=== PATIENT | female | born 2005 | race Caucasian/White ===

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

== ENCOUNTER → 2024-03-16 | Outpatient (CLI) | payer OTHER ==
[~2024-03-16] MED LIST changes: +MEDROL DOSEPAK4 MG PO
== END | disposition home or self-care (01) ==
LOC: RAD 17:00
PROVIDERS: ATTEND Nurse Practitioner Family
DX: M79.645 Pain in left finger(s) (principal)

== ENCOUNTER 2024-04-27 15:48 | Emergency (ER) | payer OTHER ==
[~2024-04-27] VITALS: Ht 157.4 cm; Wt 145.1 kg
[2024-04-27] MEDS ORDERED: Ondansetron Hydrochloride 4 MG/2 ML VIAL IV ONE (16:30)
[2024-04-27] MEDS ORDERED: SODIUM CHLORIDE 0.9% 1,000 ML IV ONE (16:30)
[2024-04-27 16:43] LABS: BILIRUBIN Negative (Negative); BLOOD Negative (Negative); CLARITY Clear (Clear); COLOR Yellow (Yellow); GLUCOSE Negative (Negative); KETONE Negative (Negative); LEUKO ESTERASE Trace (Negative); NITRITE Negative (Negative); PH 5.5 (4.5-8.0); UROBILINOGEN 0.2 E.U./dl (0.0-1.0)
[2024-04-27 16:43] LABS: BASO # 0.1 10*3/uL (0.0-0.1); BASO % 0.6 % (0.0-1.0); EOS # 0.1 10*3/uL (0.0-0.4); EOS % 1.2 % (1.0-4.0); HEMATOCRIT 40.1 % (37.0-47.0); LYMPH # 2.9 10*3/uL (1.3-4.4); LYMPH % 26.5 % (27.0-41.0); MEAN CELL VOLUME 78.3 fl (81.0-99.0); MEAN CORPUSCULAR HGB CONC 31.9 g/dl (33.0-37.0); MEAN PLATELET VOLUME 9.9 fl (9.6-12.3); MONO # 0.7 10*3/uL (0.1-1.0); MONO % 6.3 % (3.0-9.0); NEUT # 7.1 10*3/uL (2.3-7.9); NEUT % 65.1 % (47.0-73.0); PLATELET COUNT AUTOMATED 305 10*3/uL (130-400); RED BLOOD COUNT 5.12 10*6/uL (4.10-5.10); RED CELL DISTRI WIDTH 13.8 % (0-14.5); WHITE BLOOD COUNT 10.9 10*3/uL (4.8-10.8)
[2024-04-27 17:08] LABS: ALKALINE PHOSPHATASE 64 U/L (46-116); BUN 12 mg/dl (9-23); CHLORIDE 102 mmol/L (98-107); LIPASE 40 U/L (12-53); POTASSIUM 4.2 mmol/L (3.4-5.1); SGPT/ALT 34 U/L (5-49); TOTAL PROTEIN 7.6 gm/dL (6.0-8.0)
[2024-04-27 17:13] LABS: BACTERIA 1+
[2024-04-27] MEDS ORDERED: Ceftriaxone Sodium 1 GM/10 ML SYR IV ONE (19:25)
[2024-04-27] MEDS ORDERED: Acetaminophen/Oxycodone 5 MG/325 MG TABLET PO ONE (19:35)
[2024-04-27] MEDS ORDERED: HYDROCODONE-AC1 EAC1 PO (19:37)
[2024-04-27] MEDS ORDERED: Ondansetron4 MG PO (19:37)
[2024-04-27] MEDS ORDERED: CEPHALEXIN500 M1 PO (19:37)
== END 2024-04-27 20:14 | disposition home or self-care (01) ==
LOC: ED 15:48
PROVIDERS: Nurse Practitioner Family
DX: N39.0 Urinary tract infection, site not specified (principal); L03.316 Cellulitis of umbilicus; N83.201 Unspecified ovarian cyst, right side; F90.9 Attention-deficit hyperactivity disorder, unspecified type; R11.2 Nausea with vomiting, unspecified; Z88.8 Allergy status to other drugs, medicaments and biological substances; Z98.890 Other specified postprocedural states

== ENCOUNTER → 2024-04-28 | Outpatient (CLI) | payer OTHER ==
[~2024-04-28] MED LIST changes: +CEPHALEXIN500 M1 PO; +HYDROCODONE-AC1 EAC1 PO; +Ondansetron4 MG PO
== END | disposition home or self-care (01) ==
LOC: US 16:48
PROVIDERS: ATTEND Nurse Practitioner Family
DX: N83.201 Unspecified ovarian cyst, right side (principal)

== ENCOUNTER 2024-07-05 16:24 | Inpatient (IN) | payer OTHER ==
[~2024-07-05] VITALS: Ht 157.4 cm; Wt 153.5 kg
[2024-07-05 16:46] VITALS: BP 100/61
[2024-07-05] MEDS ORDERED: SODIUM CHLORIDE 0.9% 500 ML IV ONE ×2 (17:00→20:00)
[2024-07-05] MEDS ORDERED: Ondansetron Hydrochloride 4 MG/2 ML VIAL IV ONE (17:00)
[2024-07-05 17:06] LABS: BASO # 0.1 10*3/uL (0.0-0.1); BASO % 0.2 % (0.0-1.0); HEMATOCRIT 37.9 % (37.0-47.0); MEAN CELL VOLUME 77.3 fl (81.0-99.0); MEAN CORPUSCULAR HGB 24.7 pg (27.0-31.0); MEAN CORPUSCULAR HGB CONC 31.9 g/dl (33.0-37.0); MEAN PLATELET VOLUME 10.9 fl (9.6-12.3); MONO # 1.4 10*3/uL (0.1-1.0); MONO % 6.8 % (3.0-9.0); NEUT % 86.1 % (47.0-73.0); PLATELET COUNT AUTOMATED 227 10*3/uL (130-400); RED CELL DISTRI WIDTH 14.9 % (0-14.5)
[2024-07-05 17:31] LABS: POTASSIUM 3.8 mmol/L (3.4-5.1); TOTAL PROTEIN 7.3 gm/dL (6.0-8.0)
[2024-07-05 19:21] LABS: FREE T4 1.94 ng/dl (0.89-1.76)
[2024-07-05 19:31] LABS: BILIRUBIN 1+ (Negative); BLOOD 3+ (Negative); CLARITY Turbid (Clear); COLOR Orange (Yellow); GLUCOSE Negative (Negative); KETONE Negative (Negative); LEUKO ESTERASE 3+ (Negative); NITRITE Negative (Negative); PH 5.5 (4.5-8.0); SPECIFIC GRAVITY 1.015 (1.001-1.030); UROBILINOGEN 0.2 E.U./dl (0.0-1.0)
[2024-07-05] MEDS ORDERED: MAGNESIUM OXIDE 400 MG TAB PO ONE (19:45)
[2024-07-05 19:59] LABS: BACTERIA 2+; MUCOUS 1+; RBC 31-40 rbc/hpf (0-2); WBC TNTC wbc/hpf (0-5)
[2024-07-05] MEDS ORDERED: Ceftriaxone Sodium 1 GM/10 ML SYR IV ONE (20:05)
[2024-07-05] MEDS ORDERED: MORPHINE Sulfate 2 MG/ML SYR IV PRN (20:45)
[2024-07-05] MEDS ORDERED: Acetaminophen/Hydrocodone 5 MG/325 MG TABLET PO PRN (20:45)
[2024-07-05] MEDS ORDERED: SODIUM CHLORIDE 0.9% 1,000 ML IV SCH (20:45)
[2024-07-05] MEDS ORDERED: Ondansetron Hydrochloride 4 MG/2 ML VIAL IV PRN (20:45)
[2024-07-05] MEDS ORDERED: MORPHINE Sulfate 2 MG/ML SYR IV ONE (21:05)
[2024-07-05] MEDS ORDERED: Ceftriaxone Sodium 1 GM/10 ML SYR IV SCH (21:30)
[2024-07-05] MEDS ORDERED: Enoxaparin Sodium 120 MG/0.8 ML SYR SC SCH ×2 (22:00)
[2024-07-05 22:28] VITALS: BP 123/49
[2024-07-06 05:26] VITALS: BP 111/63
[2024-07-06 06:33] LABS: HEMATOCRIT 35.5 % (37.0-47.0); MEAN CELL VOLUME 78.7 fl (81.0-99.0); MEAN CORPUSCULAR HGB 24.6 pg (27.0-31.0); MEAN CORPUSCULAR HGB CONC 31.3 g/dl (33.0-37.0); MEAN PLATELET VOLUME 11.6 fl (9.6-12.3); PLATELET COUNT AUTOMATED 226 10*3/uL (130-400); RED BLOOD COUNT 4.51 10*6/uL (4.10-5.10); RED CELL DISTRI WIDTH 15.2 % (0-14.5); WHITE BLOOD COUNT 20.3 10*3/uL (4.8-10.8)
[2024-07-06 06:36] LABS: MANUAL DIFF REFLEX YES
[2024-07-06] MEDS ORDERED: Technetium Tc 99M Pentetate 1 KIT KIT IV SCH (07:20)
[2024-07-06] MEDS ORDERED: Technetium Tc 99M MacroAg Albu 1 KIT KIT IV SCH (07:20)
[2024-07-06 07:28] LABS: BASOPHILS 1 % (0-1); BURR CELLS FEW; MICROCYTOSIS SLIGHT; OVALOCYTES FEW; PLATELET SUFFICIENCY NORMAL (NORMAL); POLYCHROMASIA SLIGHT; TOTAL CELLS COUNTED 100 #CELLS
[2024-07-06] MEDS ORDERED: SODIUM CHLORIDE 0.9% 1,000 ML IV SCH (08:00)
[2024-07-06 08:06] VITALS: BP 104/58
[2024-07-06] MEDS ORDERED: HEPARIN SODIUM 250 ML IV SCH (08:20)
[2024-07-06] MEDS ORDERED: ACETAMINOPHEN 325 MG TAB PO ONE (08:20)
[2024-07-06] MEDS ORDERED: SODIUM BICARBONATE 150 MEQ in DEXTROSE 5% 1,000 ML IV SCH ×2 (09:25→19:00)
[2024-07-06] MEDS ORDERED: Ceftriaxone Sodium 1 GM in SYRINGE INFUSION 10 ML IV SCH (10:00)
[2024-07-06 12:15] VITALS: BP 107/63
[2024-07-06 14:30] VITALS: BP 109/71
[2024-07-06] MEDS ORDERED: HYDROXYZINE HCL25 MG PO (14:36)
[2024-07-06] MEDS ORDERED: SERTRALINE HYDR50 MG PO (14:37)
[2024-07-06] MEDS ORDERED: TRULICITY3 MG/0.5 M SQ (14:37)
[2024-07-06 18:35] VITALS: BP 115/61
[2024-07-06] MEDS ORDERED: ACETAMINOPHEN 325 MG TAB PO PRN (18:35)
[2024-07-06 20:00] VITALS: BP 118/74
[2024-07-06] MEDS ORDERED: Ceftriaxone Sodium 2 GM in SYRINGE INFUSION 20 ML IV SCH (21:00)
[2024-07-06] MEDS ORDERED: FERROUS SULFATE 325 MG TAB PO SCH (22:00)
[2024-07-07] VITALS: BP 129/75
[2024-07-07] MEDS ORDERED: OXYCODONE HCL (IR) 5 MG TAB PO SCH (06:00)
[2024-07-07] MEDS ORDERED: Levothyroxine Sodium 75 MCG TAB PO SCH (06:00)
[2024-07-07 06:06] LABS: MEAN CELL VOLUME 76.4 fl (81.0-99.0); MEAN CORPUSCULAR HGB 24.9 pg (27.0-31.0); MEAN CORPUSCULAR HGB CONC 32.6 g/dl (33.0-37.0); MEAN PLATELET VOLUME 11.4 fl (9.6-12.3); PLATELET COUNT AUTOMATED 271 10*3/uL (130-400); RED BLOOD COUNT 4.58 10*6/uL (4.10-5.10); RED CELL DISTRI WIDTH 15.4 % (0-14.5); WHITE BLOOD COUNT 21.1 10*3/uL (4.8-10.8)
[2024-07-07 06:08] LABS: POTASSIUM 3.5 mmol/L (3.4-5.1)
[2024-07-07 06:14] LABS: MANUAL DIFF REFLEX YES
[2024-07-07 06:56] LABS: MICROCYTOSIS SLIGHT; POLYCHROMASIA SLIGHT; TOTAL CELLS COUNTED 100 #CELLS
[2024-07-07 06:57] LABS: BURR CELLS FEW; OVALOCYTES FEW; PLATELET SUFFICIENCY NORMAL (NORMAL); SCHISTOCYTES FEW; TOXIC GRANULATION SLIGHT
[2024-07-07 08:00] VITALS: BP 120/71
[2024-07-07] MEDS ORDERED: Sertraline Hydrochloride 50 MG TAB PO SCH (10:00)
[2024-07-07] MEDS ORDERED: amLODIPine besylate 5 MG TAB PO SCH (10:00)
[2024-07-07 12:00] VITALS: BP 132/71
[2024-07-07] MEDS ORDERED: Meropenem 50 ML IV SCH (12:00)
[2024-07-07 12:04] LABS: BILIRUBIN Negative (Negative); BLOOD 2+ (Negative); CLARITY Clear (Clear); COLOR Yellow (Yellow); GLUCOSE Negative (Negative); KETONE Negative (Negative); LEUKO ESTERASE Trace (Negative); NITRITE Negative (Negative); PH 5.5 (4.5-8.0); UROBILINOGEN 0.2 E.U./dl (0.0-1.0)
[2024-07-07 12:14] LABS: URINE CREATININE RANDOM 81.76 mg/dL
[2024-07-07 12:17] LABS: WBC 16-20 wbc/hpf (0-5)
[2024-07-07] MEDS ORDERED: SODIUM BICARBONATE 75 MEQ in SODIUM CHLORIDE 0.45% 1,000 ML IV SCH (13:00)
[2024-07-07 16:00] VITALS: BP 114/70
[2024-07-07 20:00] VITALS: BP 119/69
[2024-07-08] VITALS: BP 136/83
[2024-07-08 05:52] LABS: POTASSIUM 3.2 mmol/L (3.4-5.1); TOTAL PROTEIN 6.8 gm/dL (6.0-8.0)
[2024-07-08 06:26] LABS: HEMATOCRIT 35.8 % (37.0-47.0); MEAN CELL VOLUME 74.9 fl (81.0-99.0); MEAN CORPUSCULAR HGB 24.7 pg (27.0-31.0); MEAN PLATELET VOLUME 10.6 fl (9.6-12.3); PLATELET COUNT AUTOMATED 293 10*3/uL (130-400); RED BLOOD COUNT 4.78 10*6/uL (4.10-5.10); RED CELL DISTRI WIDTH 15.4 % (0-14.5); WHITE BLOOD COUNT 15.4 10*3/uL (4.8-10.8)
[2024-07-08 06:30] LABS: MANUAL DIFF REFLEX YES
[2024-07-08] MEDS ORDERED: POTASSIUM CHLORIDE 20 MEQ TAB PO ONE (06:55)
[2024-07-08 08:00] VITALS: BP 133/74
[2024-07-08 08:28] LABS: PLATELET SUFFICIENCY NORMAL (NORMAL); TOTAL CELLS COUNTED 100 #CELLS
[2024-07-08 12:00] VITALS: BP 121/69
[2024-07-08] MEDS ORDERED: OXYCODONE HCL (IR) 5 MG TAB PO PRN (13:34)
[2024-07-08] MEDS ORDERED: diphenhydrAMINE hydrochloride 25 MG CAP PO PRN (14:35)
[2024-07-08] MEDS ORDERED: AQUAPHOR OINTMENT Base 50 GM TUBE T PRN (14:35)
[2024-07-08 16:00] VITALS: BP 117/72
[2024-07-08 20:00] VITALS: BP 117/75
[2024-07-09] VITALS: BP 123/72
[2024-07-09 06:39] LABS: HEMATOCRIT 33.5 % (37.0-47.0); MEAN CELL VOLUME 75.1 fl (81.0-99.0); MEAN CORPUSCULAR HGB 24.9 pg (27.0-31.0); MEAN CORPUSCULAR HGB CONC 33.1 g/dl (33.0-37.0); MEAN PLATELET VOLUME 10.2 fl (9.6-12.3); PLATELET COUNT AUTOMATED 307 10*3/uL (130-400); RED BLOOD COUNT 4.46 10*6/uL (4.10-5.10); RED CELL DISTRI WIDTH 15.2 % (0-14.5); WHITE BLOOD COUNT 10.5 10*3/uL (4.8-10.8)
[2024-07-09 06:43] LABS: MANUAL DIFF REFLEX YES
[2024-07-09 07:11] LABS: POTASSIUM 3.6 mmol/L (3.4-5.1); TOTAL PROTEIN 6.2 gm/dL (6.0-8.0)
[2024-07-09 07:53] LABS: ATYPICAL LYMPHS 1 % (0-0); MICROCYTOSIS SLIGHT; PLATELET SUFFICIENCY NORMAL (NORMAL); TOTAL CELLS COUNTED 100 #CELLS
[2024-07-09 08:00] VITALS: BP 138/93
[2024-07-09] MEDS ORDERED: Dicyclomine Hydrochloride 20 MG/10 ML OSYR PO STA (11:05)
[2024-07-09] MEDS ORDERED: Lidocaine Hydrochloride 15 ML UDC PO STA (11:05)
[2024-07-09] MEDS ORDERED: MG-AL HYDROXIDE/SIMETICONE 30 ML UDC PO STA (11:05)
[2024-07-09 12:00] VITALS: BP 135/86
[2024-07-09 16:00] VITALS: BP 137/82
[2024-07-09] MEDS ORDERED: Pantoprazole Sodium 40 MG TAB PO SCH (18:00)
[2024-07-09 20:00] VITALS: BP 132/92
[2024-07-09] MEDS ORDERED: HEPARIN SODIUM 5,000 UNIT/ML VIAL SC SCH (22:00)
[2024-07-10] VITALS: BP 139/85
[2024-07-10 06:10] LABS: HEMATOCRIT 34.1 % (37.0-47.0); MEAN CELL VOLUME 77.7 fl (81.0-99.0); MEAN CORPUSCULAR HGB 24.8 pg (27.0-31.0); MEAN PLATELET VOLUME 9.8 fl (9.6-12.3); PLATELET COUNT AUTOMATED 333 10*3/uL (130-400); RED BLOOD COUNT 4.39 10*6/uL (4.10-5.10); RED CELL DISTRI WIDTH 15.4 % (0-14.5); WHITE BLOOD COUNT 12.2 10*3/uL (4.8-10.8)
[2024-07-10 06:24] LABS: MANUAL DIFF REFLEX YES
[2024-07-10 07:32] LABS: POTASSIUM 3.7 mmol/L (3.4-5.1)
[2024-07-10 07:44] LABS: BASOPHILS 2 % (0-1); TOTAL CELLS COUNTED 100 #CELLS
[2024-07-10 07:45] LABS: MICROCYTOSIS SLIGHT; PLATELET SUFFICIENCY NORMAL (NORMAL)
[2024-07-10 08:00] VITALS: BP 124/74
[2024-07-10] MEDS ORDERED: LEVOFLOXACIN750 M2 PO (10:55)
[2024-07-10] MEDS ORDERED: OMEPRAZOLE40 MG PO (10:55)
== END 2024-07-10 12:50 | disposition home or self-care (01) | DRG 720 ==
LOC: ED 16:24 → EDHOLD 20:35 → 4E 20:35
PROVIDERS: Internal Medicine Nephrology; Nurse Practitioner; Student in an Organized Health Care Education/Training Program; ADMIT Student in an Organized Health Care Education/Training Program; ATTEND Student in an Organized Health Care Education/Training Program
DX: A41.9 Sepsis, unspecified organism (principal); N17.0 Acute kidney failure with tubular necrosis; E44.1 Mild protein-calorie malnutrition; Z68.43 Body mass index [BMI] 50.0-59.9, adult; N39.0 Urinary tract infection, site not specified; E87.1 Hypo-osmolality and hyponatremia; E28.2 Polycystic ovarian syndrome; R65.20 Severe sepsis without septic shock; N18.2 Chronic kidney disease, stage 2 (mild); N80.9 Endometriosis, unspecified; R31.9 Hematuria, unspecified; R19.7 Diarrhea, unspecified; R79.89 Other specified abnormal findings of blood chemistry; Z20.822 Contact with and (suspected) exposure to COVID-19; E83.42 Hypomagnesemia; R79.82 Elevated C-reactive protein (CRP); R80.9 Proteinuria, unspecified; M54.50 Low back pain, unspecified; K59.00 Constipation, unspecified; E78.5 Hyperlipidemia, unspecified; I12.9 Hypertensive chronic kidney disease with stage 1 through stage 4 chronic kidney disease, or unspecified chronic kidney disease; E03.9 Hypothyroidism, unspecified; K76.0 Fatty (change of) liver, not elsewhere classified; R74.01 Elevation of levels of liver transaminase levels; E87.6 Hypokalemia; Z83.3 Family history of diabetes mellitus; Z82.49 Family history of ischemic heart disease and other diseases of the circulatory system; Z83.6 Family history of other diseases of the respiratory system; Z88.8 Allergy status to other drugs, medicaments and biological substances

== ENCOUNTER 2024-09-07 13:18 | Inpatient (IN) | payer OTHER ==
[~2024-09-07] VITALS: Ht 157.5 cm; Wt 132.4 kg
[~2024-09-07 13:18] MED LIST changes: +HYDROXYZINE HCL25 MG PO; +LEVOFLOXACIN750 M2 PO; +OMEPRAZOLE40 MG PO; +SERTRALINE HYDR50 MG PO; +TRULICITY3 MG/0.5 M SQ
[2024-09-07 13:40] VITALS: BP 133/74
[2024-09-07] MEDS ORDERED: MORPHINE Sulfate 2 MG/ML SYR IV ONE (13:55)
[2024-09-07] MEDS ORDERED: ACETAMINOPHEN 325 MG TAB PO ONE (13:55)
[2024-09-07] MEDS ORDERED: IOHEXOL 300 MG/ML 100 ML VIAL IV ONE (13:55)
[2024-09-07] MEDS ORDERED: Ondansetron Hydrochloride 4 MG/2 ML VIAL IV ONE (13:55)
[2024-09-07] MEDS ORDERED: SODIUM CHLORIDE 0.9% 1,000 ML IV ONE (13:55)
[2024-09-07 14:13] LABS: HEMATOCRIT 39.2 % (37.0-47.0); MEAN CELL VOLUME 78.2 fl (81.0-99.0); MEAN CORPUSCULAR HGB CONC 31.9 g/dl (33.0-37.0); MEAN PLATELET VOLUME 10.5 fl (9.6-12.3); PLATELET COUNT AUTOMATED 297 10*3/uL (130-400); RED BLOOD COUNT 5.01 10*6/uL (4.10-5.10); RED CELL DISTRI WIDTH 15.6 % (0-14.5); WHITE BLOOD COUNT 17.9 10*3/uL (4.8-10.8)
[2024-09-07 14:15] LABS: MANUAL DIFF REFLEX YES
[2024-09-07 14:22] LABS: BILIRUBIN Negative (Negative); BLOOD 1+ (Negative); CLARITY Turbid (Clear); COLOR Yellow (Yellow); GLUCOSE Negative (Negative); KETONE Trace (Negative); LEUKO ESTERASE 2+ (Negative); NITRITE Negative (Negative); PH 5.5 (4.5-8.0)
[2024-09-07 14:33] LABS: BURR CELLS FEW; PLATELET SUFFICIENCY NORMAL (NORMAL); TOTAL CELLS COUNTED 100 #CELLS
[2024-09-07 14:34] LABS: POLYCHROMASIA SLIGHT
[2024-09-07 14:38] LABS: BACTERIA 3+; EPITHELIAL CELLS 16-20; WBC 51-100 wbc/hpf (0-5)
[2024-09-07 14:41] LABS: ALKALINE PHOSPHATASE 71 U/L (46-116); BUN 11 mg/dl (9-23); CHLORIDE 103 mmol/L (98-107); POTASSIUM 3.6 mmol/L (3.4-5.1); SGPT/ALT 28 U/L (5-49); TOTAL PROTEIN 7.6 gm/dL (6.0-8.0)
[2024-09-07 16:25] VITALS: BP 117/59
[2024-09-07] MEDS ORDERED: Ceftriaxone Sodium 1 GM/10 ML SYR IV ONE (17:10)
[2024-09-07] MEDS ORDERED: ACETAMINOPHEN 325 MG TAB PO PRN (17:35)
[2024-09-07] MEDS ORDERED: BISACODYL 5 MG TAB PO PRN (17:35)
[2024-09-07] MEDS ORDERED: Acetaminophen/Hydrocodone 5 MG/325 MG TABLET PO PRN (17:35)
[2024-09-07] MEDS ORDERED: Magnesium Hydroxide 30 ML UDC PO PRN (17:35)
[2024-09-07] MEDS ORDERED: BISACODYL 10 MG SUPP R PRN (17:35)
[2024-09-07] MEDS ORDERED: Ondansetron Hydrochloride 4 MG/2 ML VIAL IV PRN (17:35)
[2024-09-07] MEDS ORDERED: ACETAMINOPHEN 650 MG SUPP R PRN (17:35)
[2024-09-07] MEDS ORDERED: SODIUM CHLORIDE 0.9% 1,000 ML IV SCH ×2 (17:40→21:45)
[2024-09-07 18:00] VITALS: BP 92/68
[2024-09-07] MEDS ORDERED: Ceftriaxone Sodium 1 GM in SYRINGE INFUSION 10 ML IV ONE (18:15)
[2024-09-07 20:00] VITALS: BP 123/58
[2024-09-07] MEDS ORDERED: FLUTICASONE PROPIONATE 100 mcg INHALER INH PRN (21:20)
[2024-09-07] MEDS ORDERED: FERROUS SULFATE 325 MG TAB PO SCH (22:00)
[2024-09-07] MEDS ORDERED: Meropenem 1 GM in SODIUM CHLORIDE 0.9% 100 ML IV SCH (22:00)
[2024-09-07] MEDS ORDERED: hydrOXYzine pamoate 25 MG CAP PO SCH (22:00)
[2024-09-08] VITALS: BP 120/62
[2024-09-08] MEDS ORDERED: OMEPRAZOLE 20 MG CAP PO SCH (06:00)
[2024-09-08 08:00] VITALS: BP 116/50
[2024-09-08 08:52] LABS: HEMATOCRIT 33.6 % (37.0-47.0); MEAN CELL VOLUME 79.6 fl (81.0-99.0); MEAN CORPUSCULAR HGB 24.9 pg (27.0-31.0); MEAN CORPUSCULAR HGB CONC 31.3 g/dl (33.0-37.0); MEAN PLATELET VOLUME 11.1 fl (9.6-12.3); PLATELET COUNT AUTOMATED 253 10*3/uL (130-400); RED BLOOD COUNT 4.22 10*6/uL (4.10-5.10); WHITE BLOOD COUNT 20.5 10*3/uL (4.8-10.8)
[2024-09-08 08:54] LABS: MANUAL DIFF REFLEX YES
[2024-09-08 09:17] LABS: POTASSIUM 3.4 mmol/L (3.4-5.1)
[2024-09-08 09:59] LABS: PLATELET SUFFICIENCY NORMAL (NORMAL); TOTAL CELLS COUNTED 100 #CELLS
[2024-09-08] MEDS ORDERED: amLODIPine besylate 5 MG TAB PO SCH (10:00)
[2024-09-08] MEDS ORDERED: Enoxaparin Sodium 40 MG/0.4 ML SYR SC SCH (10:00)
[2024-09-08] MEDS ORDERED: Sertraline Hydrochloride 50 MG TAB PO SCH (10:00)
[2024-09-08] MEDS ORDERED: Levothyroxine Sodium 75 MCG TAB PO SCH (10:00)
[2024-09-08] MEDS ORDERED: DROSPIRENONE 4 MG PO SCH (10:00)
[2024-09-08] MEDS ORDERED: MAGNESIUM SULFATE 100 ML IV ONE (11:30)
[2024-09-08 12:00] VITALS: BP 130/73
[2024-09-08 16:00] VITALS: BP 126/71
[2024-09-08 20:00] VITALS: BP 117/65
[2024-09-09] VITALS: BP 99/57
[2024-09-09 01:28] VITALS: BP 86/50
[2024-09-09] MEDS ORDERED: HEPARIN SODIUM 250 ML IV SCH (01:40)
[2024-09-09] MEDS ORDERED: ASPIRIN, CHEWABLE 81 MG TAB PO ONE (01:40)
[2024-09-09 01:47] LABS: HEMATOCRIT 33.5 % (37.0-47.0); MEAN CORPUSCULAR HGB 25.1 pg (27.0-31.0); MEAN CORPUSCULAR HGB CONC 31.3 g/dl (33.0-37.0); MEAN PLATELET VOLUME 10.4 fl (9.6-12.3); PLATELET COUNT AUTOMATED 263 10*3/uL (130-400); RED BLOOD COUNT 4.19 10*6/uL (4.10-5.10); RED CELL DISTRI WIDTH 15.8 % (0-14.5); WHITE BLOOD COUNT 18.2 10*3/uL (4.8-10.8)
[2024-09-09] MEDS ORDERED: TICAGRELOR 90 MG TABLET PO ONE ×2 (01:50→02:08)
[2024-09-09] MEDS ORDERED: SODIUM CHLORIDE 0.9% 1,000 ML IV ONE ×2 (02:00→02:09)
[2024-09-09] MEDS ORDERED: ASPIRIN, CHEWABLE 81 MG TAB ONE (02:02)
[2024-09-09 02:09] LABS: BUN 15 mg/dl (9-23); CHLORIDE 107 mmol/L (98-107); MANUAL DIFF REFLEX YES; POTASSIUM 3.9 mmol/L (3.4-5.1)
[2024-09-09 02:11] LABS: TOTAL CELLS COUNTED 100 #CELLS
[2024-09-09 02:12] LABS: PLATELET SUFFICIENCY NORMAL (NORMAL)
[2024-09-09] MEDS ORDERED: HEPARIN SODIUM 250 ML IV ONE (02:18)
[2024-09-09 02:20] VITALS: BP 88/54
== END 2024-09-09 03:02 | disposition short-term general hospital (02) | DRG 720 ==
LOC: ED 13:18 → 4E 17:14 → EDHOLD 17:14 → 4E 17:39
PROVIDERS: Internal Medicine; Physician Assistant Medical; Student in an Organized Health Care Education/Training Program; ADMIT Internal Medicine; ATTEND Internal Medicine
DX: A41.9 Sepsis, unspecified organism (principal); I21.11 ST elevation (STEMI) myocardial infarction involving right coronary artery; N12 Tubulo-interstitial nephritis, not specified as acute or chronic; R73.9 Hyperglycemia, unspecified; E03.9 Hypothyroidism, unspecified; N80.9 Endometriosis, unspecified; E78.5 Hyperlipidemia, unspecified; I12.9 Hypertensive chronic kidney disease with stage 1 through stage 4 chronic kidney disease, or unspecified chronic kidney disease; N83.201 Unspecified ovarian cyst, right side; E83.42 Hypomagnesemia; D50.9 Iron deficiency anemia, unspecified; N18.30 Chronic kidney disease, stage 3 unspecified; Z88.8 Allergy status to other drugs, medicaments and biological substances; Z91.09 Other allergy status, other than to drugs and biological substances; Z79.899 Other long term (current) drug therapy; Z79.01 Long term (current) use of anticoagulants; Z79.2 Long term (current) use of antibiotics; Z82.5 Family history of asthma and other chronic lower respiratory diseases; Z82.49 Family history of ischemic heart disease and other diseases of the circulatory system; Z83.3 Family history of diabetes mellitus

== ENCOUNTER → 2024-10-14 | Outpatient (CLI) | payer OTHER | END | disposition home or self-care (01) | LOC: US 15:18 | PROVIDERS: ATTEND Nurse Practitioner Women's Health | DX: N83.291 Other ovarian cyst, right side (principal); R10.2 Pelvic and perineal pain ==

== ENCOUNTER → 2025-01-11 | Outpatient (CLI) | payer OTHER ==
[2025-01-11 10:21] LABS: BASO # 0.1 10*3/uL (0.0-0.1); BASO % 0.5 % (0.0-1.0); EOS # 0.2 10*3/uL (0.0-0.4); EOS % 1.7 % (1.0-4.0); HEMATOCRIT 39.1 % (37.0-47.0); MEAN CORPUSCULAR HGB 25.2 pg (27.0-31.0); MEAN CORPUSCULAR HGB CONC 31.5 g/dl (33.0-37.0); MEAN PLATELET VOLUME 10.1 fl (9.6-12.3); MONO # 0.7 10*3/uL (0.1-1.0); MONO % 5.6 % (3.0-9.0); NEUT # 8.1 10*3/uL (2.3-7.9); NEUT % 64.6 % (47.0-73.0); PLATELET COUNT AUTOMATED 274 10*3/uL (130-400); RED BLOOD COUNT 4.89 10*6/uL (4.10-5.10); RED CELL DISTRI WIDTH 13.8 % (0-14.5); WHITE BLOOD COUNT 12.6 10*3/uL (4.8-10.8)
[2025-01-11 10:22] LABS: BILIRUBIN Negative (Negative); BLOOD Trace-Lysed (Negative); CLARITY Cloudy (Clear); COLOR Yellow (Yellow); GLUCOSE Negative (Negative); KETONE Negative (Negative); LEUKO ESTERASE 3+ (Negative); NITRITE Positive (Negative); SPECIFIC GRAVITY 1.015 (1.001-1.030); UROBILINOGEN 0.2 E.U./dl (0.0-1.0)
[2025-01-11 10:56] LABS: BACTERIA 3+; WBC TNTC wbc/hpf (0-5)
[2025-01-11 10:59] LABS: ALKALINE PHOSPHATASE 66 U/L (46-116); BUN 12 mg/dl (9-23); CHLORIDE 107 mmol/L (98-107); SGPT/ALT 22 U/L (5-49); TOTAL PROTEIN 6.7 gm/dL (6.0-8.0)
== END | disposition home or self-care (01) ==
LOC: LAB 09:22
PROVIDERS: ATTEND Oral & Maxillofacial Surgery
DX: Z01.818 Encounter for other preprocedural examination (principal)

== ENCOUNTER 2025-02-28 13:36 | Emergency (ER) | payer OTHER ==
[~2025-02-28] VITALS: Ht 157.4 cm; Wt 133.4 kg
[2025-02-28 14:21] LABS: BILIRUBIN Negative (Negative); BLOOD Trace-Lysed (Negative); CLARITY Cloudy (Clear); COLOR Yellow (Yellow); KETONE Negative (Negative); LEUKO ESTERASE 2+ (Negative); NITRITE Negative (Negative); PH 6.0 (4.5-8.0); SPECIFIC GRAVITY 1.010 (1.001-1.030); UROBILINOGEN 0.2 E.U./dl (0.0-1.0)
[2025-02-28 14:26] LABS: BASO # 0.1 10*3/uL (0.0-0.1); BASO % 0.5 % (0.0-1.0); EOS # 0.1 10*3/uL (0.0-0.4); EOS % 0.6 % (1.0-4.0); MEAN CELL VOLUME 80.2 fl (81.0-99.0); MEAN CORPUSCULAR HGB 25.3 pg (27.0-31.0); MEAN PLATELET VOLUME 10.5 fl (9.6-12.3); MONO # 1.1 10*3/uL (0.1-1.0); MONO % 6.6 % (3.0-9.0); NEUT # 13.1 10*3/uL (2.3-7.9); NEUT % 77.3 % (47.0-73.0); NUCLEATED RED BLOOD CELL 0.0 % (0.0-0.0); NUCLEATED RED BLOOD CELL 0.0 10*3/uL (0.0-0.0); PLATELET COUNT AUTOMATED 299 10*3/uL (130-400); RED CELL DISTRI WIDTH 14.3 % (0-14.5)
[2025-02-28 14:29] LABS: BACTERIA 2+; WBC 51-100 wbc/hpf (0-5)
[2025-02-28 14:47] LABS: BUN 11 mg/dl (9-23); SGPT/ALT 19 U/L (5-49)
[2025-02-28] MEDS ORDERED: IOHEXOL 300 MG/ML 100 ML VIAL IV ONE (14:55)
[2025-02-28] MEDS ORDERED: SODIUM CHLORIDE 0.9% 1,000 ML IV SCH (15:00)
[2025-02-28] MEDS ORDERED: IOHEXOL 300 MG/ML 100 ML VIAL ONE (15:16)
[2025-02-28] MEDS ORDERED: CIPRO500 MG PO (16:50)
== END 2025-02-28 17:04 | disposition home or self-care (01) ==
LOC: ED 13:36
PROVIDERS: Internal Medicine
DX: N39.0 Urinary tract infection, site not specified (principal); R11.2 Nausea with vomiting, unspecified; K59.00 Constipation, unspecified; Z88.8 Allergy status to other drugs, medicaments and biological substances; Z88.1 Allergy status to other antibiotic agents; Z79.899 Other long term (current) drug therapy; Z90.89 Acquired absence of other organs

== ENCOUNTER 2025-04-19 08:36 | Inpatient (IN) | payer OTHER ==
[~2025-04-19] VITALS: Ht 157.4 cm; Wt 134.8 kg
[~2025-04-19 08:36] MED LIST changes: +CIPRO500 MG PO
[2025-04-19 08:48] VITALS: BP 123/92
[2025-04-19 09:29] LABS: BILIRUBIN Negative (Negative); BLOOD Trace-Lysed (Negative); CLARITY Clear (Clear); COLOR Yellow (Yellow); KETONE Negative (Negative); LEUKO ESTERASE 3+ (Negative); NITRITE Positive (Negative); PH 6.5 (4.5-8.0); SPECIFIC GRAVITY <= 1.005 (1.001-1.030); UROBILINOGEN 0.2 E.U./dl (0.0-1.0)
[2025-04-19] MEDS ORDERED: ACETAMINOPHEN 325 MG TAB PO ONE (09:30)
[2025-04-19 09:43] LABS: BASO # 0.1 10*3/uL (0.0-0.1); BASO % 0.4 % (0.0-1.0); EOS # 0.1 10*3/uL (0.0-0.4); EOS % 0.7 % (1.0-4.0); MEAN CELL VOLUME 80.4 fl (81.0-99.0); MEAN CORPUSCULAR HGB 24.9 pg (27.0-31.0); MEAN PLATELET VOLUME 10.4 fl (9.6-12.3); MONO # 1.5 10*3/uL (0.1-1.0); MONO % 11.1 % (3.0-9.0); NEUT # 9.4 10*3/uL (2.3-7.9); NEUT % 69.2 % (47.0-73.0); NUCLEATED RED BLOOD CELL 0.0 % (0.0-0.0); NUCLEATED RED BLOOD CELL 0.0 10*3/uL (0.0-0.0); PLATELET COUNT AUTOMATED 237 10*3/uL (130-400); RED CELL DISTRI WIDTH 15.0 % (0-14.5)
[2025-04-19 09:45] LABS: BACTERIA 4+; WBC 51-100 wbc/hpf (0-5)
[2025-04-19 10:02] LABS: BUN 11.0 mg/dl (9-23)
[2025-04-19] MEDS ORDERED: Lactated Ringer's Solution 1,000 ML IV SCH (10:20)
[2025-04-19] MEDS ORDERED: Ondansetron Hydrochloride 4 MG/2 ML VIAL IV ONE (11:05)
[2025-04-19 11:15] VITALS: BP 142/88
[2025-04-19] MEDS ORDERED: ACETAMINOPHEN 325 MG TAB PO PRN (12:15)
[2025-04-19] MEDS ORDERED: Acetaminophen/Hydrocodone 5 MG/325 MG TABLET PO PRN (12:15)
[2025-04-19] MEDS ORDERED: Ondansetron Hydrochloride 4 MG/2 ML VIAL IV PRN (12:15)
[2025-04-19] MEDS ORDERED: ACETAMINOPHEN 650 MG SUPP R PRN (12:15)
[2025-04-19 13:30] VITALS: BP 119/74
[2025-04-19 16:00] VITALS: BP 128/86
[2025-04-19 20:00] VITALS: BP 128/79
[2025-04-20] VITALS: BP 107/43; BP 140/79
[2025-04-20 05:59] LABS: BASO # 0.0 10*3/uL (0.0-0.1); BASO % 0.4 % (0.0-1.0); EOS # 0.1 10*3/uL (0.0-0.4); EOS % 1.3 % (1.0-4.0); MEAN CELL VOLUME 79.7 fl (81.0-99.0); MEAN CORPUSCULAR HGB 24.8 pg (27.0-31.0); MEAN PLATELET VOLUME 10.8 fl (9.6-12.3); MONO # 1.1 10*3/uL (0.1-1.0); MONO % 10.0 % (3.0-9.0); NEUT # 7.0 10*3/uL (2.3-7.9); NEUT % 66.5 % (47.0-73.0); NUCLEATED RED BLOOD CELL 0.0 % (0.0-0.0); NUCLEATED RED BLOOD CELL 0.0 10*3/uL (0.0-0.0); PLATELET COUNT AUTOMATED 253 10*3/uL (130-400); RED CELL DISTRI WIDTH 15.1 % (0-14.5)
[2025-04-20] MEDS ORDERED: OMEPRAZOLE 20 MG CAP PO SCH (06:00)
[2025-04-20 06:18] LABS: BUN 11.0 mg/dl (9-23); FREE T4 1.55 ng/dl (0.89-1.76); SGPT/ALT 24.0 U/L (5-49)
[2025-04-20 08:00] VITALS: BP 120/71
[2025-04-20] MEDS ORDERED: FLUTICASONE PROPIONATE Nasal 16 Gm spray NAS SCH (10:00)
[2025-04-20] MEDS ORDERED: DROSPIRENONE 4 MG PO SCH (10:00)
[2025-04-20 12:00] VITALS: BP 132/56
[2025-04-20] MEDS ORDERED: ACETAMINOPHEN 70 ML IV ONE (12:10)
[2025-04-20] MEDS ORDERED: Menthol/Zinc Oxide 4 GM THIN T PRN (15:25)
[2025-04-20 16:00] VITALS: BP 144/82
[2025-04-20] MEDS ORDERED: CALAMINE 120 ML BOT T SCH (16:00)
[2025-04-20 20:00] VITALS: BP 124/73
[2025-04-21] VITALS: BP 106/62
[2025-04-21 06:03] LABS: BASO # 0.0 10*3/uL (0.0-0.1); BASO % 0.6 % (0.0-1.0); EOS # 0.2 10*3/uL (0.0-0.4); EOS % 2.4 % (1.0-4.0); MEAN CELL VOLUME 80.0 fl (81.0-99.0); MEAN CORPUSCULAR HGB 24.6 pg (27.0-31.0); MEAN PLATELET VOLUME 10.5 fl (9.6-12.3); MONO # 0.8 10*3/uL (0.1-1.0); MONO % 10.8 % (3.0-9.0); NEUT # 4.2 10*3/uL (2.3-7.9); NEUT % 58.9 % (47.0-73.0); NUCLEATED RED BLOOD CELL 0.0 % (0.0-0.0); NUCLEATED RED BLOOD CELL 0.0 10*3/uL (0.0-0.0); PLATELET COUNT AUTOMATED 287 10*3/uL (130-400); RED CELL DISTRI WIDTH 14.7 % (0-14.5)
[2025-04-21 06:40] LABS: BUN 14.0 mg/dl (9-23)
[2025-04-21 08:00] VITALS: BP 125/74
[2025-04-21 12:00] VITALS: BP 141/92
[2025-04-21] MEDS ORDERED: CEFADROXIL1 G1 PO (14:35)
== END 2025-04-21 16:30 | disposition home or self-care (01) | DRG 720 ==
LOC: ED 08:36 → EDHOLD 11:41 → 4E 11:41
PROVIDERS: Emergency Medicine; ADMIT Internal Medicine; ATTEND Internal Medicine
DX: A41.9 Sepsis, unspecified organism (principal); E44.0 Moderate protein-calorie malnutrition; N17.9 Acute kidney failure, unspecified; N18.2 Chronic kidney disease, stage 2 (mild); N10 Acute pyelonephritis; I12.9 Hypertensive chronic kidney disease with stage 1 through stage 4 chronic kidney disease, or unspecified chronic kidney disease; K21.9 Gastro-esophageal reflux disease without esophagitis; E03.9 Hypothyroidism, unspecified; F32.A Depression, unspecified; E11.22 Type 2 diabetes mellitus with diabetic chronic kidney disease; R65.20 Severe sepsis without septic shock; D50.9 Iron deficiency anemia, unspecified; Z88.8 Allergy status to other drugs, medicaments and biological substances; Z91.012 Allergy to eggs; Z83.3 Family history of diabetes mellitus; Z82.49 Family history of ischemic heart disease and other diseases of the circulatory system; Z83.6 Family history of other diseases of the respiratory system